=== PATIENT | female | born 1965 | race American Indian/Alaskan Native ===

== ENCOUNTER 2017-08-21 09:52 | Emergency (ER) | payer SELFPAY ==
[2017-08-21 10:03] VITALS: BP 186/98
[2017-08-21 10:28] LABS: Basophils % (Auto) 2.2 % (0.0-1.8); Eosinophils % (Auto) 1.8 % (0.0-4.3); Hematocrit 35.7 % (30.3-42.9); Hemoglobin 11.4 gm/dl (10.1-14.3); Mean Corpuscular HGB Conc 32 % (30-34); Mean Corpuscular Volume 81 fl (79-97); Platelet Count 304 K/mm3 (140-440); Red Blood Count 4.42 M/mm3 (3.65-5.03); Red Cell Distribution Width 19.1 % (13.2-15.2); White Blood Count 3.6 K/mm3 (4.5-11.0)
[2017-08-21 10:32] LABS: Mean Corpuscular Hemoglobin 26 pg (28-32)
[2017-08-21 11:53] LABS: Anion Gap 16 mmol/L; BUN/Creatinine Ratio 30; Blood Urea Nitrogen 15 mg/dL (7-17); Calcium 9.4 mg/dL (8.4-10.2); Carbon Dioxide 27 mmol/L (22-30); Glucose 83 mg/dL (65-100); Potassium 4.1 mmol/L (3.6-5.0); Sodium 144 mmol/L (137-145)
--- NOTE | 2017-08-21 12:03 | XRay Report ---
Chest 2 views: History: Shortness of breath. Findings: Normal cardiomediastinal silhouette the trachea is midline. No acute consolidation, pneumothorax or pleural effusion. Scarring left lower lobe. Impression: No acute lung changes.
[2017-08-21 13:49] LABS: Bacteria,Urine 1+ /HPF (Negative); Bilirubin,Urine NEG (Negative); Blood,Urine NEG (Negative); Ketones,Urine NEG (Negative); Leukocyte Esterase,Urine MOD (Negative); Mucus,Urine FEW /HPF; Nitrite,Urine NEG (Negative); Protein,Urine <15 mg/dL mg/dL (Negative); Urobilinogen,Urine < 2.0 mg/dL (<2.0)
== END 2017-08-21 10:17 | disposition left against medical advice (07) ==
LOC: ED 09:52
DX: R06.02 Shortness of breath (principal); R10.9 Unspecified abdominal pain; Z53.21 Procedure and treatment not carried out due to patient leaving prior to being seen by health care provider
CPT/HCPCS: 36415; 71020; 80048; 81001; 84484; 85025; 93005; 93010

== ENCOUNTER 2017-10-05 18:40 | Emergency (ER) | payer OTHER ==
[2017-10-05 19:06] LABS: Basophils % (Auto) 1.6 % (0.0-1.8); Eosinophils % (Auto) 1.3 % (0.0-4.3); Mean Corpuscular HGB Conc 31 % (30-34); Mean Corpuscular Volume 83 fl (79-97); Platelet Count 233 K/mm3 (140-440); Red Blood Count 4.89 M/mm3 (3.65-5.03); White Blood Count 4.4 K/mm3 (4.5-11.0)
[2017-10-05 19:08] LABS: Hematocrit 40.8 % (30.3-42.9); Hemoglobin 12.5 gm/dl (10.1-14.3); Mean Corpuscular Hemoglobin 26 pg (28-32); Red Cell Distribution Width 20.2 % (13.2-15.2)
[2017-10-05 19:20] LABS: Anion Gap 22 mmol/L; BUN/Creatinine Ratio 21; Blood Urea Nitrogen 15 mg/dL (7-17); Calcium 9.5 mg/dL (8.4-10.2); Carbon Dioxide 23 mmol/L (22-30); Chloride 101.2 mmol/L (98-107); Glucose 81 mg/dL (65-100); Sodium 142 mmol/L (137-145)
[2017-10-05 19:33] LABS: Bacteria,Urine 1+ /HPF (Negative); Bilirubin,Urine NEG (Negative); Blood,Urine NEG (Negative); Ketones,Urine TR mg/dL (Negative); Leukocyte Esterase,Urine TR (Negative); Mucus,Urine 2+ /HPF; Nitrite,Urine NEG (Negative); Urobilinogen,Urine < 2.0 mg/dL (<2.0)
[2017-10-05] MEDS ORDERED: NACL 0.9% 1000 ML 1,000 ML IV ONE (23:12)
[2017-10-05] MEDS ORDERED: REGLAN IV ONE (23:13)
[2017-10-05] MEDS ORDERED: PROTONIX IV ONE (23:13)
--- NOTE | 2017-10-05 23:18 | Emergency Department Report ---
ED Abdominal Pain HPI - General Chief Complaint: Nausea/Vomiting/Diarrhea Stated Complaint: N/V/ABD PAIN SOB Time Seen by Provider: 10/05/17 23:07 Source: patient Mode of arrival: Ambulatory Limitations: No Limitations - History of Present Illness Initial Comments: Patient is 51 years old female recently diagnosed wit Crohns disease in [place]. She stated that she has been having nausea vomiting and abdominal pain for the last month also complaining of epigastric abdominal pain. Patient stated that she's been vomiting every day and decreased bowel movement. Patient denied any fever. MD Complaint: abdominal pain -: Gradual, month(s) - Related Data Home Medications Medication Instructions Recorded Confirmed Last Taken amLODIPine [Norvasc] 5 mg PO DAILY 10/06/17 10/06/17 Unknown Previous Rx's Medication Instructions Recorded Last Taken Type Lactulose 10 gm PO DAILY PRN #150 ml 10/06/17 Unknown Rx Promethazine HCl [Phenergan SUPPOS] 25 mg RC TID PRN #30 supp.rect 10/06/17 Unknown Rx Sodium Phosphate,[place]-Dibasic 118 ml RC ONCE #1 enema 10/06/17 Unknown Rx [Fleet Enema] amLODIPine [Norvasc] 10 mg PO DAILY #30 tab 10/06/17 Unknown Rx Allergies Allergy/AdvReac Type Severity Reaction Status Date / Time morphine Allergy Vomiting Verified 10/05/17 18:46 ondansetron Allergy Unknown Verified 10/05/17 18:46 [From Zofran (as hydrochloride)] ED Review of Systems ROS: Stated complaint: N/V/ABD PAIN SOB Other details as noted in HPI Comment: All other systems reviewed and negative Constitutional: denies: chills, fever Cardiovascular: denies: chest pain, palpitations, dyspnea on exertion Gastrointestinal: abdominal pain, nausea, vomiting, constipation. denies: diarrhea, hematemesis, melena, hematochezia Genitourinary: denies: urgency, dysuria, frequency, hematuria, discharge, abnormal menses, dyspareunia Musculoskeletal: denies: back pain, joint swelling Neurological: denies: headache, weakness, numbness, paresthesias ED Past Medical Hx - Past Medical History Hx Hypertension: Yes Hx CVA: Yes (TIA) Additional medical history: Crohns - Surgical History Hx Cholecystectomy: Yes (2011) Additional Surgical History: x2 - Social History Smoking Status: Current Every Day Smoker Substance Use Type: None - Medications Home Medications: Home Medications Medication Instructions Recorded Confirmed Last Taken Type Lactulose 10 gm PO DAILY PRN #150 ml 10/06/17 Unknown Rx Promethazine HCl [Phenergan SUPPOS] 25 mg RC TID PRN #30 supp.rect 10/06/17 Unknown Rx Sodium Phosphate,[place]-Dibasic 118 ml RC ONCE #1 enema 10/06/17 Unknown Rx [Fleet Enema] amLODIPine [Norvasc] 5 mg PO DAILY 10/06/17 10/06/17 Unknown History amLODIPine [Norvasc] 10 mg PO DAILY #30 tab 10/06/17 Unknown Rx ED Physical Exam - General Limitations: No Limitations General appearance: alert, in no apparent distress - Head Head exam: Present: atraumatic, normocephalic, normal inspection - Eye Eye exam: Present: normal appearance, PERRL - ENT ENT exam: Present: mucous membranes dry - Neck Neck exam: Present: normal inspection, full ROM. Absent: tenderness, meningismus, lymphadenopathy, thyromegaly - Respiratory Respiratory exam: Present: normal lung sounds bilaterally - Cardiovascular Cardiovascular Exam: Present: regular rate, normal rhythm, normal heart sounds - GI/Abdominal GI/Abdominal exam: Present: soft, normal bowel sounds. Absent: distended, tenderness, guarding, rebound, rigid, mass, bruit, pulsatile mass, hernia - Extremities Exam Extremities exam: Present: normal inspection, full ROM, normal capillary refill - Back Exam Back exam: Present: normal inspection. Absent: CVA tenderness (R), CVA tenderness (L) - Neurological Exam Neurological exam: Present: alert, oriented X3, CN II-XII intact, normal gait - Psychiatric Psychiatric exam: Present: normal affect - Skin Skin exam: Present: warm, dry ED Course Vital Signs 10/05/17 10/05/17 10/06/17 18:46 23:25 00:05 Temperature 97.3 F L Pulse Rate 76 76 Respiratory 18 17 17 Rate Blood Pressure 184/111 Blood Pressure 178/98 [Left] O2 Sat by Pulse 98 98 99 Oximetry 10/06/17 10/06/17 00:18 01:25 Temperature Pulse Rate 79 74 Respiratory 16 Rate Blood Pressure 178/98 Blood Pressure 149/93 [Left] O2 Sat by Pulse 99 Oximetry - Reevaluation(s) Reevaluation #1: 10/06/17 00:46 Patient stated that she feel much better. ED Medical Decision Making - Lab Data Result diagrams: 10/05/17 18:50 10/05/17 18:50 - Radiology Data Radiology results: image reviewed abdomen/chest x-ray: no bowel obstruction, significant constipation. Critical care attestation.: If time is entered above; I have spent that time in minutes in the direct care of this critically ill patient, excluding procedure time. ED Disposition Clinical Impression: Abdominal pain, Vomiting, Constipation Disposition: DC- TO HOME OR SELFCARE Is pt being admited?: No Condition: Stable Instructions: Constipation (ED), Abdominal Pain (ED) Prescriptions: amLODIPine [Norvasc] 10 mg PO DAILY #30 tab Lactulose 10 gm PO DAILY PRN #150 ml PRN Reason: Constipation Promethazine HCl [Phenergan SUPPOS] 25 mg RC TID PRN #30 supp.rect PRN Reason: Vomiting Sodium Phosphate,[place]-Dibasic [Fleet Enema] 118 ml RC ONCE #1 enema Referrals: PRIMARY CARE, [Primary Care Provider] - 3-5 Days
[2017-10-06] MEDS ORDERED: NORVASC PO ONE (00:14)
[2017-10-06 01:37] VITALS: BP 149/93
--- NOTE | 2017-10-06 09:10 | XRay Report ---
ABDOMINAL SERIES: History: Abdominal pain. Supine and upright views of the abdomen and frontal view of the chest are submitted. There is gas mixed with moderate stool throughout the colon. There are no dilated loops of bowel or air-fluid levels. There is no free intraperitoneal gas. The lungs are clear. IMPRESSION: Fecal retention.
== END 2017-10-06 01:25 | disposition home or self-care (01) ==
LOC: ED 18:40
DX: K59.00 Constipation, unspecified (principal); I10 Essential (primary) hypertension; K50.90 Crohn's disease, unspecified, without complications; F17.200 Nicotine dependence, unspecified, uncomplicated; Z90.49 Acquired absence of other specified parts of digestive tract; Z86.73 Personal history of transient ischemic attack (TIA), and cerebral infarction without residual deficits; Z88.6 Allergy status to analgesic agent
CPT/HCPCS: 36415; 74022; 80048; 81001; 85025; 96361; 96374; 96375; 99284; C9113; J2765; J2930; J7030

== ENCOUNTER 2017-12-05 22:34 | Emergency (ER) | payer SELFPAY ==
[2017-12-06 00:10] VITALS: BP 182/106
[2017-12-06 00:40] LABS: Basophils # (Auto) 0.1 K/mm3 (0.0-0.1); Basophils % (Auto) 1.4 % (0.0-1.8); Eosinophils % (Auto) 1.1 % (0.0-4.3); Hematocrit 40.6 % (30.3-42.9); Hemoglobin 12.9 gm/dl (10.1-14.3); Lymphocytes # (Auto) 1.4 K/mm3 (1.2-5.4); Lymphocytes % (Auto) 37.5 % (13.4-35.0); Mean Corpuscular HGB Conc 32 % (30-34); Mean Corpuscular Hemoglobin 27 pg (28-32); Mean Corpuscular Volume 85 fl (79-97); Monocytes # (Auto) 0.4 K/mm3 (0.0-0.8); Monocytes % (Auto) 9.7 % (0.0-7.3); Platelet Count 274 K/mm3 (140-440); Red Blood Count 4.76 M/mm3 (3.65-5.03); Red Cell Distribution Width 18.7 % (13.2-15.2)
[2017-12-06 00:59] LABS: Albumin 4.2 g/dL (3.9-5); BUN/Creatinine Ratio 18; Blood Urea Nitrogen 11 mg/dL (7-17); Calcium 9.2 mg/dL (8.4-10.2); Hemolysis Index 3
[2017-12-06 01:05] LABS: Alanine Aminotransferase < 5 units/L (7-56)
[2017-12-06 02:08] LABS: Bacteria,Urine 1+ /HPF (Negative); Bilirubin,Urine NEG (Negative); Blood,Urine SM (Negative); Color,Urine Yellow (Yellow); Hyaline Casts,Urine 1 /LPF; Nitrite,Urine NEG (Negative); Urobilinogen,Urine < 2.0 mg/dL (<2.0)
== END 2017-12-06 05:50 | disposition left against medical advice (07) ==
LOC: ED 22:34
DX: R10.9 Unspecified abdominal pain (principal); R11.2 Nausea with vomiting, unspecified; Z53.21 Procedure and treatment not carried out due to patient leaving prior to being seen by health care provider
CPT/HCPCS: 36415; 80053; 81001; 85025

== ENCOUNTER 2017-12-06 16:08 | Emergency (ER) | payer SELFPAY ==
[2017-12-06] MEDS ORDERED: REGLAN PO ONE (17:21)
--- NOTE | 2017-12-06 17:47 | Emergency Department Report ---
ED N/V/D HPI - General Chief complaint: Nausea/Vomiting/Diarrhea Stated complaint: ABD PN Time Seen by Provider: 12/06/17 17:15 Source: patient Mode of arrival: Ambulatory Limitations: No Limitations - History of Present Illness Initial comments: Patient is a 52-year-old female who is presenting with nausea vomiting for the past 3 days. Patient states she's been unable to tolerate anything by mouth including water. Patient states she has diffuse abdominal pain that is a cramping burning sensation. This pain is most concentrated in the epigastric area. Patient denies fevers or diarrhea headache cough at this time. The patient is passing flatus. Patient also states she had does have chills associated with the nausea vomiting abdominal pain. Patient does know that her blood pressure is elevated states she is not been on medications in several months. The patient is waiting for her insurance to began. Patient also is complaining of dysuria as well - Related Data Home Medications Medication Instructions Recorded Confirmed Last Taken amLODIPine [Norvasc] 5 mg PO DAILY 10/06/17 10/06/17 Unknown Previous Rx's Medication Instructions Recorded Last Taken Type Lactulose 10 gm PO DAILY PRN #150 ml 10/06/17 Unknown Rx Promethazine HCl [Phenergan SUPPOS] 25 mg RC TID PRN #30 supp.rect 10/06/17 Unknown Rx Sodium Phosphate,[place]-Dibasic 118 ml RC ONCE #1 enema 10/06/17 Unknown Rx [Fleet Enema] Metoclopramide [Reglan] 10 mg PO TID #15 tab 12/06/17 Unknown Rx Omeprazole 20 mg PO DAILY #30 tablet.dr 12/06/17 Unknown Rx Sucralfate [Carafate] 1 gm PO Q6HR 20 Days udc 12/06/17 Unknown Rx amLODIPine [Norvasc] 10 mg PO DAILY #30 tab 12/06/17 Unknown Rx traMADol [Ultram] 50 mg PO Q6HR PRN #12 tablet 12/06/17 Unknown Rx Allergies Allergy/AdvReac Type Severity Reaction Status Date / Time morphine Allergy Vomiting Verified 12/06/17 16:16 ondansetron Allergy Unknown Verified 12/06/17 16:16 [From Zofran (as hydrochloride)] ED Review of Systems ROS: Stated complaint: ABD PN Other details as noted in HPI Comment: All other systems reviewed and negative ED Past Medical Hx - Past Medical History Hx Hypertension: Yes Hx CVA: Yes (TIA) Additional medical history: Crohns - Surgical History Hx Cholecystectomy: Yes (2011) Additional Surgical History: x2 - Social History Smoking Status: Current Every Day Smoker Substance Use Type: None - Medications Home Medications: Home Medications Medication Instructions Recorded Confirmed Last Taken Type Lactulose 10 gm PO DAILY PRN #150 ml 10/06/17 Unknown Rx Promethazine HCl [Phenergan SUPPOS] 25 mg RC TID PRN #30 supp.rect 10/06/17 Unknown Rx Sodium Phosphate,[place]-Dibasic 118 ml RC ONCE #1 enema 10/06/17 Unknown Rx [Fleet Enema] amLODIPine [Norvasc] 5 mg PO DAILY 10/06/17 10/06/17 Unknown History Metoclopramide [Reglan] 10 mg PO TID #15 tab 12/06/17 Unknown Rx Omeprazole 20 mg PO DAILY #30 tablet.dr 12/06/17 Unknown Rx Sucralfate [Carafate] 1 gm PO Q6HR 20 Days udc 12/06/17 Unknown Rx amLODIPine [Norvasc] 10 mg PO DAILY #30 tab 12/06/17 Unknown Rx traMADol [Ultram] 50 mg PO Q6HR PRN #12 tablet 12/06/17 Unknown Rx ED Physical Exam - General Limitations: No Limitations General appearance: alert, in no apparent distress - Head Head exam: Present: atraumatic, normocephalic - Eye Eye exam: Present: normal appearance - ENT ENT exam: Present: mucous membranes moist - Neck Neck exam: Present: normal inspection - Respiratory Respiratory exam: Present: normal lung sounds bilaterally. Absent: respiratory distress, wheezes, rales, rhonchi - Cardiovascular Cardiovascular Exam: Present: regular rate, normal rhythm. Absent: systolic murmur, diastolic murmur, rubs, gallop - GI/Abdominal GI/Abdominal exam: Present: soft, tenderness (diffusely but mostly in the epigastric area), normal bowel sounds. Absent: distended, guarding, rebound - Rectal Rectal exam: Present: deferred - Extremities Exam Extremities exam: Present: normal inspection - Back Exam Back exam: Present: normal inspection - Neurological Exam Neurological exam: Present: alert, oriented X3 - Psychiatric Psychiatric exam: Present: normal affect, normal mood - Skin Skin exam: Present: warm, dry, intact, normal color. Absent: rash ED Course Vital Signs 12/06/17 12/06/17 12/06/17 16:18 19:43 19:44 Temperature 98.2 F 97.7 F Pulse Rate 83 60 Respiratory 18 16 16 Rate Blood Pressure 197/121 Blood Pressure 215/121 [Left] O2 Sat by Pulse 97 100 Oximetry ED Medical Decision Making - Lab Data A shunt was seen here in the emergency department but left last night and had laboratory studies done at that time. Patient's WBC count was 3.8 hemoglobin 12.9 chemistries were within normal limits with normal renal function and glucose of 87 sodium potassium chlorides are normal as well Lab Results 12/06/17 12/06/17 Range/Units 18:14 18:56 Lipase 20 (13-60) units/L Urine Color Yellow (Yellow) Urine Turbidity Clear (Clear) Urine pH 5.0 (5.0-7.0) Ur Specific [place] 1.045 H (1.003-1.030) Urine Protein 100 mg/dl (Negative) mg/dL Urine Glucose (UA) Neg (Negative) mg/dL Urine Ketones Tr (Negative) mg/dL Urine Blood Neg (Negative) Urine Nitrite Neg (Negative) Urine Bilirubin Sm (Negative) Urine Ictotest Negative (Negative) Urine Urobilinogen 2.0 (<2.0) mg/dL Ur Leukocyte Esterase Mod (Negative) Urine WBC (Auto) 3.0 (0.0-6.0) /HPF Urine RBC (Auto) 4.0 (0.0-6.0) /HPF U Epithel Cells (Auto) 2.0 (0-13.0) /HPF Urine Mucus Few /HPF - Radiology Data Radiology results: report reviewed CT was read by the radiologist as being consistent with gastritis possibility of enteritis as well - Medical Decision Making Patient is a 52-year-old female who is presenting with nausea vomiting and epigastric discomfort. Patient does state she has a history of GERD. Placed the patient on Carafate and omeprazole with Reglan and Ultram for pain. Patient also be started on Macrobid for UTI patient be discharged home with Neurology Follow-Up Critical care attestation.: If time is entered above; I have spent that time in minutes in the direct care of this critically ill patient, excluding procedure time. ED Disposition Clinical Impression: Hypertensive urgency, Medical non-compliance Gastritis Qualifiers: Gastritis type: unspecified gastritis Chronicity: acute Gastritis bleeding: without bleeding Qualified Code(s): K29.00 - Acute gastritis without bleeding Acute cystitis Qualifiers: Hematuria presence: without hematuria Qualified Code(s): N30.00 - Acute cystitis without hematuria Disposition: TO HOME OR SELFCARE Is pt being admited?: No Does the pt Need Aspirin: No Condition: Stable Instructions: Gastritis (ED), Urinary Tract Infection in Women (ED), Hypertension (ED) Prescriptions: amLODIPine [Norvasc] 10 mg PO DAILY #30 tab Metoclopramide [Reglan] 10 mg PO TID #15 tab Omeprazole 20 mg PO DAILY #30 tablet. Sucralfate [Carafate] 1 gm PO Q6HR 20 Days udc traMADol [Ultram] 50 mg PO Q6HR PRN #12 tablet PRN Reason: Pain Referrals: PRIMARY CARE, [Primary Care Provider] - 3-5 Days
[2017-12-06] MEDS ORDERED: BENTYL IM ONE (17:49)
[2017-12-06] MEDS ORDERED: NACL 0.9% 1000 ML 1,000 ML IV ONE (17:49)
[2017-12-06] MEDS ORDERED: PEPCID IV ONE (17:49)
[2017-12-06 19:16] LABS: Bilirubin,Urine SM (Negative); Blood,Urine NEG (Negative); Color,Urine Yellow (Yellow); Mucus,Urine FEW /HPF; Nitrite,Urine NEG (Negative)
[2017-12-06 19:19] LABS: Ictotest,Urine Negative (Negative)
[2017-12-06] MEDS ORDERED: TORADOL IV ONE (19:25)
--- NOTE | 2017-12-06 20:00 | Cat Scan Report ---
FINAL REPORT PROCEDURE: CT ABDOMEN PELVIS W CON TECHNIQUE: Computerized axial tomography of the abdomen and pelvis was performed after the IV injection of iodinated nonionic contrast. HISTORY: Nausea/vomiting. Abdominal pain. COMPARISON: No prior studies are available for comparison. FINDINGS: . Visualized lower thorax: No significant abnormality. Liver: Normal size and attenuation. Spleen: Normal size and attenuation. Gallbladder and biliary system: Cholecystectomy. CBD 12 mm. Pancreas: Prominent pancreatic duct. Adrenals: Mildly prominent nodular left adrenal gland. 13 mm nodule of the lateral limb of the left adrenal gland with subtle areas of enhancement. Kidneys: Subcentimeter bilateral low attenuation renal lesions. GI tract: Moderate thickening and narrowing of the gastric body. Scattered fluid-filled prominent loops of ileum without discrete transition. Normal appendix not confidently seen. Proximal descending colon mildly thick-walled. More distal descending colon normal appearing. Focal area of narrowing in the sigmoid colon. Lymph nodes and mesentery: Normal. Vasculature: Moderate atherosclerosis. Bladder: Normal. Reproductive organs: Normal. Peritoneum: No free fluid. Musculoskeletal structures: Thoracic spine Schmorl's nodes. Tiny osteophytes. 14 mm subtle lucent lesion with punctate densities in the left sacrum. Healed left 10th posterior rib fracture. Other: None. IMPRESSION: Moderate thickening and narrowing of the gastric body, concerning for gastritis. Consider further evaluation including endoscopy if there is concern for underlying mass lesion. Scattered prominent loops of small bowel, consider ileus/enteritis. Obstruction felt to be less likely. Normal appendix not confidently seen, several loops of unopacified bowel in this region. Consider clinical correlation and further evaluation including CT scan with oral contrast if there is continued clinical concern for appendiceal pathology Areas of narrowing of the colon, could be related to degree of distention but consider mild colitis. Cholecystectomy. Common bile duct dilated to 12 mm. Could be normal post cholecystectomy, but consider further evaluation and followup including right upper quadrant ultrasound if there is continued clinical concern. Nodular left adrenal gland with 13 millimeter nodule with subtle areas of enhancement. Consider MRI for further characterization (if patient has no contraindication to MRI). Pancreatic duct is prominent. Subtle lucent lesion in the left sacrum with punctate densities, etiology is uncertain but consider process such as a hemangioma. Consider further evaluation including bone scan if there is continued clinical concern for underlying neoplastic/metastatic process.
[2017-12-06 20:40] VITALS: BP 189/109
== END 2017-12-06 20:49 | disposition home or self-care (01) ==
LOC: ED 16:08
DX: K29.00 Acute gastritis without bleeding (principal); N30.00 Acute cystitis without hematuria; I16.0 Hypertensive urgency; I10 Essential (primary) hypertension; K50.90 Crohn's disease, unspecified, without complications; F17.200 Nicotine dependence, unspecified, uncomplicated; Z90.49 Acquired absence of other specified parts of digestive tract; Z91.14 Patient's other noncompliance with medication regimen; Z88.8 Allergy status to other drugs, medicaments and biological substances; Z88.5 Allergy status to narcotic agent; Z86.73 Personal history of transient ischemic attack (TIA), and cerebral infarction without residual deficits
CPT/HCPCS: 36415; 74177; 81001; 83690; 96361; 96372; 96374; 96375; 99284; J0500; J1885; J7030; Q9967

== ENCOUNTER 2017-12-08 22:47 | Inpatient (IN) | payer SELFPAY ==
[2017-12-08 23:55] LABS: Bilirubin,Urine NEG (Negative); Blood,Urine NEG (Negative); Color,Urine Yellow (Yellow); Mucus,Urine FEW /HPF; Nitrite,Urine NEG (Negative)
[2017-12-08 23:58] LABS: Basophils % (Auto) 1.3 % (0.0-1.8); Eosinophils % (Auto) 1.1 % (0.0-4.3); Hematocrit 38.9 % (30.3-42.9); Hemoglobin 12.5 gm/dl (10.1-14.3); Lymphocytes # (Auto) 1.1 K/mm3 (1.2-5.4); Mean Corpuscular HGB Conc 32 % (30-34); Mean Corpuscular Hemoglobin 28 pg (28-32); Mean Corpuscular Volume 86 fl (79-97); Monocytes # (Auto) 0.3 K/mm3 (0.0-0.8); Monocytes % (Auto) 10.1 % (0.0-7.3); Platelet Count 256 K/mm3 (140-440); Red Blood Count 4.52 M/mm3 (3.65-5.03); Red Cell Distribution Width 18.9 % (13.2-15.2)
[2017-12-09] MEDS ORDERED: DILAUDID IV ONE (00:13)
[2017-12-09] MEDS ORDERED: NACL 0.9% 1000 ML 1,000 ML IV ONE (00:13)
[2017-12-09] MEDS ORDERED: NORMODYNE IV ONE (00:13)
[2017-12-09] MEDS ORDERED: REGLAN IV ONE (00:13)
[2017-12-09] MEDS ORDERED: PROTONIX IV ONE (00:13)
[2017-12-09] MEDS ORDERED: BENADRYL IV ONE (00:13)
--- NOTE | 2017-12-09 00:19 | Emergency Department Report ---
ED Chest Pain HPI - General Chief Complaint: Abdominal Pain Stated Complaint: CP,ABD PAIN Time Seen by Provider: 12/08/17 23:59 Source: patient, old records reviewed Mode of arrival: Ambulatory Limitations: No Limitations - History of Present Illness Initial Comments: 52-year-old female with a past medical history of previous CVA, hypertension, previous cholecystectomy and Crohn's disease presents to the hospital for continued nausea, vomiting, abdominal pain 4 days and left sided grabbing chest pain times one day. Patient was seen and evaluated here on December 06 for her similar GI symptoms. This includes generalized abdominal pain greatest in the epigastric pain that is constant and, severe, and worse with palpation. Positive associated nausea, vomiting and by mouth intolerance. Patient denies fever, hematemesis, diarrhea, melena, or hematochezia. On her ED visit here on December 06. She had a CT scan showing signs suggestive of gastritis, possible ileitis/enteritis thought to be less likely, mild colitis, and other incidental findings. Patient was discharged home with Reglan, omeprazole, Carafate, Norvasc, and tramadol. It is documented that patient was noncompliant with her blood pressure medication for several months prior to ED visit. Patient states that she was able to only fill the Norvasc and tramadol and could not afford the other prescribed medications. She's continued to vomit and have by mouth intolerance and pain. 1 day ago she developed left-sided grabbing chest pain under her left breast. This pain is constant and rated 10/10 in intensity as well. No complaints of shortness of breath. Severity scale (0 -10): 7 - Related Data Home Medications Medication Instructions Recorded Confirmed Last Taken amLODIPine [Norvasc] 5 mg PO DAILY 10/06/17 10/06/17 Unknown Previous Rx's Medication Instructions Recorded Last Taken Type Lactulose 10 gm PO DAILY PRN #150 ml 10/06/17 Unknown Rx Promethazine HCl [Phenergan SUPPOS] 25 mg RC TID PRN #30 supp.rect 10/06/17 Unknown Rx Sodium Phosphate,Hughes-Dibasic 118 ml RC ONCE #1 enema 10/06/17 Unknown Rx [Fleet Enema] Metoclopramide [Reglan] 10 mg PO TID #15 tab 12/06/17 Unknown Rx Omeprazole 20 mg PO DAILY #30 tablet.dr 12/06/17 Unknown Rx Sucralfate [Carafate] 1 gm PO Q6HR 20 Days udc 12/06/17 Unknown Rx amLODIPine [Norvasc] 10 mg PO DAILY #30 tab 12/06/17 Unknown Rx traMADol [Ultram] 50 mg PO Q6HR PRN #12 tablet 12/06/17 Unknown Rx Allergies Allergy/AdvReac Type Severity Reaction Status Date / Time morphine Allergy Vomiting Verified 12/06/17 16:16 ondansetron Allergy Unknown Verified 12/06/17 16:16 [From Zofran (as hydrochloride)] Heart Score - HEART Score History: Slightly suspicious EKG: Non-specific Age: 45-65 Risk factors: > 3 risk factors or hx of atherosclerotic disease Troponin: < normal limit HEART Score: 4 ED Review of Systems ROS: Stated complaint: CP,ABD PAIN Other details as noted in HPI Comment: All other systems reviewed and negative Other: Constitutional: No fevers chills Eyes: No eye pain visual changes ENT: No ear pain or throat pain Neck: Denies pain Respiratory: Denies cough wheezing Cardiovascular: Deniespalpitations, syncope GI: As per HPI : Denies dysuria Musculoskeletal: Denies back pain, joint swelling Skin: Denies rash, lesions, erythema Neurologic: Denies headache, numbness, weakness Psychiatric: Denies suicidal ideation, hallucinations ED Past Medical Hx - Past Medical History Previous Medical History?: Yes Hx Hypertension: Yes Hx CVA: Yes (TIA) Additional medical history: Crohns - Surgical History Past Surgical History?: Yes Hx Cholecystectomy: Yes (2011) Additional Surgical History: x2 - Social History Smoking Status: Current Every Day Smoker - Medications Home Medications: Home Medications Medication Instructions Recorded Confirmed Last Taken Type Lactulose 10 gm PO DAILY PRN #150 ml 10/06/17 Unknown Rx Promethazine HCl [Phenergan SUPPOS] 25 mg RC TID PRN #30 supp.rect 10/06/17 Unknown Rx Sodium Phosphate,Hughes-Dibasic 118 ml RC ONCE #1 enema 10/06/17 Unknown Rx [Fleet Enema] amLODIPine [Norvasc] 5 mg PO DAILY 10/06/17 10/06/17 Unknown History Metoclopramide [Reglan] 10 mg PO TID #15 tab 12/06/17 Unknown Rx Omeprazole 20 mg PO DAILY #30 tablet. 12/06/17 Unknown Rx Sucralfate [Carafate] 1 gm PO Q6HR 20 Days udc 12/06/17 Unknown Rx amLODIPine [Norvasc] 10 mg PO DAILY #30 tab 12/06/17 Unknown Rx traMADol [Ultram] 50 mg PO Q6HR PRN #12 tablet 12/06/17 Unknown Rx ED Physical Exam - General Limitations: No Limitations - Other Other exam information: General: No limitations, patient is alert in no acute distress Head exam: Atraumatic, normocephalic Eyes exam: Normal appearance ENT: Dry mucous membrane Neck exam: Normal inspection, full range of motion, no meningismus nontender Respiratory exam: Clear to auscultation bilateral, no wheezes, rales, crackles. Left-sided chest wall tenderness below breast Cardiovascular: Normal rate and rhythm, normal heart sounds Abdomen: Soft, nondistended, left upper, epigastric, and right upper quadrant tenderness greatest in the epigastric area. No rebound or guarding Extremity: Full range of motion normal inspection no deformity Back: Normal Inspection, full range of motion, no tenderness Neurologic: Alert, oriented x3, cranial nerves intact, no motor or sensory deficit Psychiatric: normal affect, normal mood Skin: Warm, dry, intact ED Course Vital Signs 12/08/17 12/08/17 12/08/17 23:06 23:21 23:52 Temperature 98.2 F 98.2 F Pulse Rate 70 69 Respiratory 8 L 18 Rate Blood Pressure 196/113 196/113 O2 Sat by Pulse 97 97 98 Oximetry 12/08/17 12/08/17 12/09/17 23:57 23:58 00:00 Temperature 97.5 F L Pulse Rate 60 Respiratory 12 12 Rate Blood Pressure 205/116 O2 Sat by Pulse 100 100 Oximetry 12/09/17 12/09/17 12/09/17 00:12 00:16 00:30 Temperature Pulse Rate 61 62 62 Respiratory 10 L 16 11 L Rate Blood Pressure 205/116 205/116 203/108 O2 Sat by Pulse 98 98 99 Oximetry 12/09/17 12/09/17 12/09/17 00:46 00:49 01:00 Temperature Pulse Rate 64 58 L 63 Respiratory 14 10 L Rate Blood Pressure 201/109 201/109 177/99 O2 Sat by Pulse 99 100 Oximetry 12/09/17 01:16 Temperature Pulse Rate 61 Respiratory 11 L Rate Blood Pressure 201/109 O2 Sat by Pulse 84 Oximetry - Reevaluation(s) Reevaluation #1: 12/09/17 01:48 bp trending downward some symptomatic improvement with treatment. BP 177/99 prior to transfer upstairs ROLANDA score - Rolanda Score Age > 65: (0) No Aspirin use within the Past 7 Days: (0) No 3 or more CAD Risk Factors: (1) Yes 2 or more Angina events in past 24 hrs: (1) Yes Known CAD with more than 50% Stenosis: (0) No Elevated Cardiac Markers: (0) No ST Deviation Greater than 0.5mm: (0) No ROLANDA Score: 2 ED Medical Decision Making - Lab Data Result diagrams: 12/08/17 23:44 12/08/17 23:44 Lab Results 12/08/17 12/08/17 12/08/17 Range/Units 23:42 23:44 23:44 WBC 3.4 L (4.5-11.0) K/mm3 RBC 4.52 (3.65-5.03) M/mm3 Hgb 12.5 (10.1-14.3) gm/dl Hct 38.9 (30.3-42.9) % MCV 86 (79-97) fl MCH 28 (28-32) pg MCHC 32 (30-34) % RDW 18.9 H (13.2-15.2) % Plt Count 256 (140-440) K/mm3 Lymph % (Auto) 32.0 (13.4-35.0) % Hughes % (Auto) 10.1 H (0.0-7.3) % Eos % (Auto) 1.1 (0.0-4.3) % Baso % (Auto) 1.3 (0.0-1.8) % Lymph # 1.1 L (1.2-5.4) K/mm3 Hughes # 0.3 (0.0-0.8) K/mm3 Eos # 0.0 (0.0-0.4) K/mm3 Baso # 0.0 (0.0-0.1) K/mm3 Seg Neutrophils % 55.5 (40.0-70.0) % Seg Neutrophils # 1.9 (1.8-7.7) K/mm3 Sodium 136 L (137-145) mmol/L Potassium 3.7 (3.6-5.0) mmol/L Chloride 95.3 L (98-107) mmol/L Carbon Dioxide 24 (22-30) mmol/L Anion Gap 20 mmol/L BUN 11 (7-17) mg/dL Creatinine 0.5 L (0.7-1.2) mg/dL Estimated GFR > 60 ml/min BUN/Creatinine Ratio 22 % Glucose 84 (65-100) mg/dL Calcium 8.7 (8.4-10.2) mg/dL Total Bilirubin < 0.20 (0.1-1.2) mg/dL AST 20 (5-40) units/L ALT < 5 L (7-56) units/L Alkaline Phosphatase 72 (35-129) units/L Troponin T < 0.010 (0.00-0.029) ng/mL Total Protein 7.0 (6.3-8.2) g/dL Albumin 4.0 (3.9-5) g/dL Albumin/Globulin Ratio 1.3 % Urine Color Yellow (Yellow) Urine Turbidity Clear (Clear) Urine pH 5.0 (5.0-7.0) Ur Specific Wilmer 1.039 H (1.003-1.030) Urine Protein 30 mg/dl (Negative) mg/dL Urine Glucose (UA) Neg (Negative) mg/dL Urine Ketones Neg (Negative) mg/dL Urine Blood Neg (Negative) Urine Nitrite Neg (Negative) Urine Bilirubin Neg (Negative) Urine Urobilinogen 2.0 (<2.0) mg/dL Ur Leukocyte Esterase Lg (Negative) Urine WBC (Auto) 8.0 H (0.0-6.0) /HPF Urine RBC (Auto) 2.0 (0.0-6.0) /HPF U Epithel Cells (Auto) 1.0 (0-13.0) /HPF Urine Mucus Few /HPF - EKG Data -: EKG Interpreted by Sd EKG shows normal: sinus rhythm, axis (70), QRS complexes (88), ST-T waves (lat t inv) Rate: normal (68) - EKG Data When compared to previous EKG there are: changes noted (compared to 08/21/2017 upright lateral T-wave) - Medical Decision Making Chest pain Positive EKG suggestive of LVH with strain however, changes compared to August 2017 UNcontrol hypertension secondary to medication noncompliance Initial troponin negative Enteric coated aspirin initiated Labetalol initiated for BP control Abdominal pain CT from December 06 suggestive of gastritis Patient has been unable to fill her Reglan, Carafate, or protonix and continues to have similar symptoms Patient treated in the ED with Protonix IV, Reglan, normal saline, Benadryl, and Dilaudid Mild increase urine wbc's but no current symptoms reported. Culture pending Elevated specific gravity on UA suggests dehydration - Differential Diagnosis gastritis, HI, unstable angina, hypertensive emergency Critical Care Time: No Critical care attestation.: If time is entered above; I have spent that time in minutes in the direct care of this critically ill patient, excluding procedure time. ED Disposition Clinical Impression: Gastritis, Medical non-compliance, Hypertensive urgency, Chest pain, Acute electrocardiogram changes Disposition: OP ADMIT IP TO THIS HOSP Is pt being admited?: Yes Does the pt Need Aspirin: Yes Condition: Stable Time of Disposition: 00:32 (Dr Sam/hosp)
[2017-12-09 00:20] LABS: BUN/Creatinine Ratio 22; Blood Urea Nitrogen 11 mg/dL (7-17); Calcium 8.7 mg/dL (8.4-10.2); Hemolysis Index 90
[2017-12-09] MEDS ORDERED: ECOTRIN PO ONE (00:21)
[2017-12-09 00:28] LABS: Alanine Aminotransferase < 5 units/L (7-56)
[2017-12-09] MEDS ORDERED: DILAUDID IV PRN ×2 (03:23→08:09)
[2017-12-09] MEDS ORDERED: QUELICIN ONE ×3 (07:59)
[2017-12-09] MEDS ORDERED: TORADOL ONE (07:59)
[2017-12-09] MEDS ORDERED: NEO SYNEPHRINE/NS Syringe(OR USE) IV ONE (08:00)
--- NOTE | 2017-12-09 08:00 | Event Note ---
Date: 12/09/17 See dictated H/p in reports Chest pain r/o IN
[2017-12-09] MEDS ORDERED: PHENERGAN PR PRN (08:05)
[2017-12-09] MEDS ORDERED: CEPHULAC PR PRN (08:05)
[2017-12-09] MEDS ORDERED: ULTRAM PO PRN (08:05)
[2017-12-09] MEDS ORDERED: ZOFRAN IV PRN (08:09)
[2017-12-09] MEDS ORDERED: MILK OF MAGNESIA PO PRN (08:09)
[2017-12-09] MEDS ORDERED: PERCOCET 5/325 PO PRN (08:09)
[2017-12-09] MEDS ORDERED: TYLENOL PO PRN (09:00)
[2017-12-09] MEDS ORDERED: MOTRIN PO PRN (09:00)
[2017-12-09] MEDS ORDERED: NORVASC PO SCH ×2 (10:00→14:00)
[2017-12-09] MEDS ORDERED: NON-FORMULARY (Omeprazole [Omeprazole] 20 MG) PO SCH (10:00)
[2017-12-09] MEDS ORDERED: DULCOLAX PR PRN (10:00)
[2017-12-09] MEDS ORDERED: LEXISCAN IV ONE (10:30)
[2017-12-09] MEDS ORDERED: CEPHULAC PO PRN (11:00)
[2017-12-09] MEDS ORDERED: PROTONIX PO SCH (11:00)
[2017-12-09] MEDS ORDERED: CARAFATE PO SCH (12:00)
[2017-12-09] MEDS ORDERED: MIRALAX 3350 PO PRN (13:00)
[2017-12-09] MEDS ORDERED: APRESOLINE IV PRN (13:01)
--- NOTE | 2017-12-09 13:10 | Discharge Summary ---
Providers - Providers Date of Admission: 12/09/17 00:33 Attending physician: YURIY MCRAE MD Primary care physician: CHAVEZ HUYNH Hospitalization Reason for admission: Chest pain Condition: Stable Disposition: DC-01 TO HOME OR SELFCARE Time spent for discharge: 31 minutes - Discharge Diagnoses (1) Chest pain Status: Acute (2) Gastritis Status: Acute (3) Hypertensive urgency Status: Acute (4) Medical non-compliance Status: Acute Core Measure Documentation - Palliative Care Palliative Care/ Comfort Measures: Not Applicable - Core Measures Any of the following diagnoses?: none Exam - Constitutional Vitals: Temp Pulse Resp BP Pulse Ox 97.7 F 74 16 182/80 99 12/09/17 08:45 12/09/17 11:48 12/09/17 08:45 12/09/17 11:48 12/09/17 08:45 Plan Activity: no restrictions Weight Bearing Status: Full Weight Bearing Diet: low cholesterol, low salt Follow up with: CHAVEZ HUYNH MD [Primary Care Provider] - 7 Days Prescriptions: amLODIPine [Norvasc] 5 mg PO DAILY #30 tablet Hydrochlorothiazide [HCTZ] 25 mg PO QDAY #30 tablet Polyethylene Glycol 3350 [Miralax 3350] 17 gm PO BID PRN #30 packet PRN Reason: Constipation
[2017-12-09 13:17] VITALS: BP 152/93
[2017-12-09] MEDS ORDERED: HCTZ PO SCH (14:00)
[2017-12-09] MEDS ORDERED: REGLAN PO SCH (14:00)
--- NOTE | 2017-12-10 00:57 | Treadmill Report ---
THALLIUM STRESS TEST LEFT VENTRICLE: Left ventricular chamber size is within normal spread. Perfusion study demonstrates homogeneous uptake of tracer in all segments, no significant perfusion defects identified. Gated analysis demonstrates normal left ventricular systolic function, ejection fraction greater than 70%. CONCLUSION: Normal myocardial perfusion study. JOB# [id number] CA/NTS
--- NOTE | 2017-12-10 06:21 | History and Physical Report ---
CHIEF COMPLAINT: Left-sided chest pain for 1 day. HISTORY OF PRESENT ILLNESS: A 52-year-old female with history of CVA, hypertension, cholecystectomy, Crohn's disease, comes in for left chest pain. Also, some nausea, vomiting, and p.o. intolerance. The patient has a recent episode of gastritis. No shortness of breath. No hematemesis. No fever. Also, some abdominal pain. The patient noncompliant with her blood pressure medication. PAST MEDICAL HISTORY: As mentioned, hypertension, CVA, and Crohn's disease. CURRENT MEDICATIONS: Amlodipine 10 mg daily, sucralfate 1 gram q. 6, lactulose 10 mg p.o. daily, sodium phosphate, Fleet Enema p.r.n., Omeprazole 20 mg once a day. SURGICAL HISTORY: Significant for cholecystectomy and x 2. SOCIAL HISTORY: Smokes over a pack a day. FAMILY HISTORY: Hypertension. REVIEW OF SYSTEMS: Significant for left-sided chest pain and abdominal pain. Pain is noted in the epigastric region, constant and severe, worse with palpation. Otherwise, review of systems negative. PHYSICAL EXAMINATION: GENERAL: Young female, cooperative during examination. VITAL SIGNS: Blood pressure was initially high 172/109, pulse is 63, respirations are ____, sats 100%. HEENT: Unremarkable. Pupils are equal and reactive. NECK: Supple, no lymphadenopathy, no thyromegaly. LUNGS: Clear to auscultation and percussion. Good air entry. CARDIOVASCULAR: S1, S2 heard. No gallop, no murmur, no rub. Apical impulse in left fifth intercostal space and midclavicular line. No chest wall tenderness. ABDOMEN: Soft and benign. No hepatosplenomegaly. No guarding. No rigidity. Hernial orifices are normal. EXTREMITIES: Good pedal pulses. No pedal edema. CENTRAL NERVOUS SYSTEM: Alert and oriented x 4, nonfocal exam. LABORATORY DATA: Significant for white count of 3400, H and H are 12.5 and 38.9, platelet count is 256,000. Urine positive for WBC 8.0. Specific gravity 1.039. BUN and creatinine 11 and 0.5. EKG shows sinus rhythm, nonspecific ST-T wave changes, heart rate of 80 per minute. ASSESSMENT AND PLAN: 1. Chest pain, rule out myocardial infarction, chest pain protocol. 2. Abdominal pain, nonspecific. No CAT scan done. 3. Hypertension. Continue amlodipine and metoprolol. 4. Gastroesophageal reflux disease. Continue omeprazole. Also, continue sucralfate. 5. Chronic pain. Continue tramadol. In summary, the patient has abdominal pain and chest pain, rule out OH protocol. JOB# [id number] VSM/NTS
[2017-12-10] MEDS ORDERED: PNEUMOVAX 23 IM ONE (12:00)
== END 2017-12-09 14:59 | disposition home or self-care (01) | DRG 392 ==
LOC: ED 22:47 → 4A 12-09 00:33
PROVIDERS: ADMIT Internal Medicine; ATTEND Internal Medicine
DX: K29.70 Gastritis, unspecified, without bleeding (principal); K50.90 Crohn's disease, unspecified, without complications; Z91.19 Patient's noncompliance with other medical treatment and regimen; R94.31 Abnormal electrocardiogram [ECG] [EKG]; I16.0 Hypertensive urgency; R07.9 Chest pain, unspecified; Z86.73 Personal history of transient ischemic attack (TIA), and cerebral infarction without residual deficits; Z90.49 Acquired absence of other specified parts of digestive tract; Z88.5 Allergy status to narcotic agent; F17.210 Nicotine dependence, cigarettes, uncomplicated; Z82.49 Family history of ischemic heart disease and other diseases of the circulatory system; K21.9 Gastro-esophageal reflux disease without esophagitis; G89.29 Other chronic pain
CPT/HCPCS: 36415; 78452; 80053; 81001; 84484; 85025; 87086; 93005; 93010; 93017; 99285; A9502; C9113; J0330; J1170; J1200; J1885; J2370; J2765; J2785; J7030